=== PATIENT | male | born 1960 | race Caucasian/White ===

== ENCOUNTER 2017-04-24 11:29 | Emergency (ER) | payer MEDICAID ==
[~2017-04-24] VITALS: Ht 182.8 cm; Wt 78.0 kg
[~2017-04-24 11:29] MED LIST: ALBUTEROL0.09 MG/A2 IH; DOXYCYCLINE100 M3 PO; DUONEB 3 MG/3 ML3 M1 INH; PREDNISONE10 MG PO; PROAIR HFA8.5 GM INH; SYMBICORT1 AE1 INH; ZANTAC 300300 MG PO; ZESTRIL5 MG PO; ZITHROMAX Z PA250 MG PO
[2017-04-24] MEDS ORDERED: CYCLOBENZAPRINE10 MG PO (14:20)
[2017-04-24] MEDS ORDERED: NAPROSYN500 MG PO (14:20)
== END 2017-04-24 14:53 | disposition home or self-care (01) ==
LOC: ED 11:29
DX: S29.011A Strain of muscle and tendon of front wall of thorax, initial encounter (principal); F17.200 Nicotine dependence, unspecified, uncomplicated; I10 Essential (primary) hypertension; J44.9 Chronic obstructive pulmonary disease, unspecified; Z79.899 Other long term (current) drug therapy; X58.XXXA Exposure to other specified factors, initial encounter; Y93.89 Activity, other specified; Y92.89 Other specified places as the place of occurrence of the external cause; Y99.9 Unspecified external cause status

== ENCOUNTER → 2017-04-28 | Outpatient (CLI) | payer MEDICARE, MEDICAID ==
[~2017-04-28] MED LIST changes: +CYCLOBENZAPRINE10 MG PO; +NAPROSYN500 MG PO
[2017-04-28 09:57] LABS: BASO % 0.8 % (0.0-1.0); EOS # 0.2 10*3/uL (0.0-0.4); HEMATOCRIT 48.6 % (42.0-52.0); HEMOGLOBIN 16.7 g/dl (14.0-18.0); LYMPH # 1.8 10*3/uL (1.3-4.4); LYMPH % 33.1 % (27.0-41.0); MEAN CELL VOLUME 99.8 fl (80.0-94.0); MEAN CORPUSCULAR HGB 34.3 pg (27.0-31.0); MEAN CORPUSCULAR HGB CONC 34.4 g/dl (33.0-37.0); MONO # 0.7 10*3/uL (0.1-1.0); MONO % 13.4 % (3.0-9.0); NEUT # 2.6 10*3/uL (2.3-7.9); NEUT % 49.5 % (47.0-73.0); PLATELET COUNT AUTOMATED 166 10*3/uL (130-400); RED BLOOD COUNT 4.87 10*6/uL (4.50-5.90); RED CELL DISTRI WIDTH 12.9 % (0-14.5); WHITE BLOOD COUNT 5.3 10*3/uL (4.8-10.8)
== END | disposition home or self-care (01) ==
LOC: PHLEB 09:30
PROVIDERS: Internal Medicine
DX: D75.1 Secondary polycythemia (principal)

== ENCOUNTER → 2017-05-11 | Outpatient (CLI) | payer MEDICARE, MEDICAID ==
[2017-05-11 15:57] LABS: BASO # 0.1 10*3/uL (0.0-0.1); BASO % 0.5 % (0.0-1.0); EOS # 0.2 10*3/uL (0.0-0.4); HEMATOCRIT 48.3 % (42.0-52.0); HEMOGLOBIN 17.1 g/dl (14.0-18.0); LYMPH # 2.1 10*3/uL (1.3-4.4); LYMPH % 21.5 % (27.0-41.0); MEAN CELL VOLUME 99.8 fl (80.0-94.0); MEAN CORPUSCULAR HGB 35.3 pg (27.0-31.0); MEAN CORPUSCULAR HGB CONC 35.4 g/dl (33.0-37.0); MEAN PLATELET VOLUME 10.5 fl (9.6-12.3); MONO # 1.1 10*3/uL (0.1-1.0); MONO % 11.2 % (3.0-9.0); NEUT # 6.2 10*3/uL (2.3-7.9); NEUT % 64.4 % (47.0-73.0); PLATELET COUNT AUTOMATED 197 10*3/uL (130-400); RED BLOOD COUNT 4.84 10*6/uL (4.50-5.90); WHITE BLOOD COUNT 9.6 10*3/uL (4.8-10.8)
[2017-05-11 16:26] LABS: ALBUMIN 3.7 gm/dl (3.1-4.5); ALKALINE PHOSPHATASE 76 U/L (45-117); BILIRUBIN, DIRECT 0.2 mg/dL (0.0-0.2); BUN 14 mg/dl (7-24); CHLORIDE 101 mmol/L (98-107); CREATININE 0.83 mg/dL (0.70-1.30); POTASSIUM 3.8 mmol/L (3.5-5.1); SGOT/AST 131 IU/L (3-35); SGPT/ALT 194 U/L (12-78); SODIUM 138 mmol/L (136-145)
[2017-05-11 16:37] LABS: URINE AMPHETAMINES < 1000 (1000ng/ml); URINE BARBITURATES < 200 (200ng/ml); URINE BENZODIAZEPINES < 200 (200ng/ml); URINE CANNABINOIDS (THC) > 50 (50ng/ml); URINE COCAINE < 300 (300ng/ml); URINE METHADONE < 300 (300ng/ml); URINE OPIATES < 300 (300ng/ml)
[2017-05-11 16:38] LABS: URINE PHENCYCLIDINE < 25 (25ng/ml)
[2017-05-12 06:10] LABS: HEPATITIS B SURFACE AB 006395 Non Reactive (.); HEPATITIS B SURFACE AG Negative (Negative)
[2017-05-12 19:05] LABS: HCV LOG10 6.551 (.); HEPATITIS C QNT 3560000 IU/mL (.)
== END | disposition home or self-care (01) ==
LOC: LAB 15:03
PROVIDERS: Nurse Practitioner Family
DX: B18.2 Chronic viral hepatitis C (principal); F10.10 Alcohol abuse, uncomplicated

== ENCOUNTER → 2017-08-02 | Outpatient (CLI) | payer MEDICARE, MEDICAID ==
[2017-08-02 08:41] LABS: ALBUMIN 3.5 gm/dl (3.1-4.5); BILIRUBIN, DIRECT 0.1 mg/dL (0.0-0.2); TOTAL PROTEIN 7.5 gm/dL (6.4-8.2)
[2017-08-04 21:06] LABS: HEPATITIS C QUANTITATION HCV Not Detected IU/mL (.)
== END | disposition home or self-care (01) ==
LOC: LAB 07:17
PROVIDERS: Internal Medicine Gastroenterology
DX: B18.2 Chronic viral hepatitis C (principal)

== ENCOUNTER → 2017-12-06 | Outpatient (CLI) | payer MEDICARE, MEDICAID ==
[~2017-12-06] MED LIST changes: +BREO ELLIPTA 11 EACH PO
--- NOTE | ~2017-12-06 | ST ---
[place], [place] EXERCISE STRESS TEST REPORT NAME: TEDDY COLVIN JR [facility] #: [id number] UNIT #: [id number] ROOM: DOCTOR: GIOVANNI GARCIA MD BIRTHDATE: [birth year] DOS: 12/06/2017 EXERCISE STRESS TEST. INDICATIONS: Left arm and jaw pain. PROCEDURE: The patient walked on a full Nehemias protocol stress test for 8 minutes 22 seconds and achieved a maximum heart rate of 149, which represented 90% of his maximum predicted heart rate at a workload of 10.0 mets. He stopped for dyspnea and did not have any specific chest discomfort. He did have some arm and jaw discomfort with exercise, however. The resting electrocardiogram was normal. With exercise, he developed 1.5 mm of slowly up[address] segment depression in leads II, III and aVF that resolved within 2 minutes of recovery. The Witt treadmill score was -3.2 consistent with a moderate risk for future cardiac events. One minute prior to completion of exercise protocol, the patient was given radionuclide intravenously. IMPRESSIONS: 1. Adequate exercise capacity with atypical chest discomfort and abnormal electrocardiographic changes. 2. Witt treadmill score of -3.2 consistent with moderate risk for future cardiac events. 3. Isotope injected. Please see the separate imaging report for further details of the patient's stress test results. GIOVANNI GARCIA MD CM:STRESS:EXERCISE STRESS TEST REPORT [id number] GIOVANNI GARCIA MD
== END | disposition home or self-care (01) ==
LOC: CARD 02:45
DX: I65.23 Occlusion and stenosis of bilateral carotid arteries (principal)

== ENCOUNTER → 2017-12-08 | Outpatient (CLI) | payer MEDICARE, MEDICAID | END | disposition home or self-care (01) | LOC: CARD 09:20 | DX: I34.0 Nonrheumatic mitral (valve) insufficiency (principal); I07.1 Rheumatic tricuspid insufficiency ==

== ENCOUNTER → 2017-12-16 | Outpatient (CLI) | payer MEDICARE, MEDICAID ==
[2017-12-16 09:30] LABS: CREATININE 1.06 mg/dL (0.70-1.30)
== END | disposition home or self-care (01) ==
LOC: LAB 08:53 → RAD 08:53 → CT 09:00
PROVIDERS: Radiology Diagnostic Radiology
DX: R20.2 Paresthesia of skin (principal)

== ENCOUNTER → 2018-01-19 | Outpatient (CLI) | payer MEDICARE, MEDICAID | LOC: MRI 01-12 09:00 | DX: R20.2 Paresthesia of skin (principal) ==

== ENCOUNTER → 2018-06-06 | Outpatient (CLI) | payer MEDICARE, MEDICAID ==
[~2018-06-06] MED LIST changes: +QUALITY CHOICE81 M1 PO
== END | disposition home or self-care (01) ==
LOC: RAD 10:56
DX: M25.551 Pain in right hip (principal)

== ENCOUNTER → 2018-10-13 | Outpatient (CLI) | payer MEDICARE, MEDICAID ==
[~2018-10-13] MED LIST changes: +MOBIC15 MG PO; +PREDNISONE50 MG PO; +VIBRAMYCIN100 MG PO; +VITAMIN D31000 UNI1 PO
[2018-10-14 22:05] LABS: HEPATITIS C QUANTITATION HCV Not Detected IU/mL (.)
== END ==
LOC: LAB 09:59
PROVIDERS: Internal Medicine Gastroenterology
DX: B18.2 Chronic viral hepatitis C (principal)

== ENCOUNTER 2018-12-04 07:45 | Emergency (ER) | payer MEDICARE, MEDICAID ==
[~2018-12-04] VITALS: Ht 182.8 cm; Wt 89.4 kg
[~2018-12-04 07:45] MED LIST changes: -PREDNISONE50 MG PO; -VIBRAMYCIN100 MG PO
[2018-12-04] MEDS ORDERED: VIBRAMYCIN100 MG PO (09:51)
[2018-12-04] MEDS ORDERED: PREDNISONE50 MG PO (09:51)
== END 2018-12-04 09:56 | disposition home or self-care (01) ==
LOC: ED 07:45
DX: M54.6 Pain in thoracic spine (principal); J44.1 Chronic obstructive pulmonary disease with (acute) exacerbation; F17.200 Nicotine dependence, unspecified, uncomplicated; Z79.899 Other long term (current) drug therapy; Z79.82 Long term (current) use of aspirin

== ENCOUNTER → 2020-04-24 | Outpatient (CLI) | payer MEDICARE ==
[~2020-04-24] MED LIST changes: +PREDNISONE50 MG PO; +VIBRAMYCIN100 MG PO
[2020-04-24 10:44] LABS: HEMATOCRIT 49.3 % (42.0-52.0); MEAN CELL VOLUME 99.2 fl (80.0-94.0); MEAN CORPUSCULAR HGB 33.4 pg (27.0-31.0); MEAN CORPUSCULAR HGB CONC 33.7 g/dl (33.0-37.0); MEAN PLATELET VOLUME 10.1 fl (9.6-12.3); RED BLOOD COUNT 4.97 10*6/uL (4.50-5.90); WHITE BLOOD COUNT 9.1 10*3/uL (4.8-10.8)
[2020-04-24 11:10] LABS: ALBUMIN 3.9 gm/dl (3.1-4.5); ALKALINE PHOSPHATASE 51 U/L (45-117); BUN 13 mg/dl (7-24); CHLORIDE 106 mmol/L (98-107); CREATININE 0.98 mg/dL (0.70-1.30); POTASSIUM 4.4 mmol/L (3.5-5.1); SGOT/AST 28 IU/L (3-35); SGPT/ALT 36 U/L (12-78); SODIUM 138 mmol/L (136-145); TOTAL PROTEIN 7.6 gm/dL (6.4-8.2)
== END | disposition home or self-care (01) ==
LOC: CARD 10:00 → LAB 10:04
PROVIDERS: Physician Assistant
DX: I10 Essential (primary) hypertension (principal); J43.9 Emphysema, unspecified; R42 Dizziness and giddiness

== ENCOUNTER 2020-10-26 13:19 | Observation (INO) | payer MEDICARE ==
[~2020-10-26] VITALS: Ht 180.3 cm; Wt 90.0 kg
[2020-10-26 13:24] VITALS: BP 179/100
[2020-10-26 13:54] LABS: BASO # 0.1 10*3/uL (0.0-0.1); BASO % 0.4 % (0.0-1.0); EOS # 0.2 10*3/uL (0.0-0.4); EOS % 1.4 % (1.0-4.0); HEMATOCRIT 52.6 % (42.0-52.0); LYMPH # 1.9 10*3/uL (1.3-4.4); LYMPH % 15.2 % (27.0-41.0); MEAN CELL VOLUME 98.1 fl (80.0-94.0); MEAN CORPUSCULAR HGB CONC 33.7 g/dl (33.0-37.0); MEAN PLATELET VOLUME 9.9 fl (9.6-12.3); MONO # 0.8 10*3/uL (0.1-1.0); MONO % 6.3 % (3.0-9.0); NEUT # 9.4 10*3/uL (2.3-7.9); NEUT % 76.4 % (47.0-73.0); PLATELET COUNT AUTOMATED 294 10*3/uL (130-400); RED BLOOD COUNT 5.36 10*6/uL (4.50-5.90); RED CELL DISTRI WIDTH 12.3 % (0-14.5); WHITE BLOOD COUNT 12.3 10*3/uL (4.8-10.8)
[2020-10-26 14:11] LABS: ALBUMIN 3.9 gm/dl (3.1-4.5); ALKALINE PHOSPHATASE 58 U/L (45-117); BUN 11 mg/dl (7-24); CHLORIDE 104 mmol/L (98-107); CREATININE 1.41 mg/dL (0.70-1.30); LIPASE 73 U/L (73-393); POTASSIUM 4.2 mmol/L (3.5-5.1); SGOT/AST 27 IU/L (3-35); SGPT/ALT 39 U/L (12-78); SODIUM 138 mmol/L (136-145); TOTAL PROTEIN 7.9 gm/dL (6.4-8.2)
[2020-10-26 14:21] LABS: BILIRUBIN Negative (Negative); BLOOD Negative (Negative); CLARITY Clear (Clear); COLOR Dark Yellow (Yellow); GLUCOSE Negative (Negative); KETONE Trace (Negative); LEUKO ESTERASE Negative (Negative); NITRITE Negative (Negative); PH 6.5 (4.5-8.0); SPECIFIC GRAVITY 1.025 (1.001-1.030)
[2020-10-26 14:34] LABS: BACTERIA TRACE; EPITHELIAL CELLS 0-2; MUCOUS 1+; WBC 0-2 wbc/hpf (0-5)
[2020-10-26 17:16] VITALS: BP 154/88
[2020-10-26 17:26] VITALS: BP 150/80
[2020-10-27] VITALS (8 sets, daily range): BP systolic 134–158; BP diastolic 68–99
[2020-10-27 06:26] LABS: ACT PARTIAL THROMBO TIME 27.8 SECONDS (20.0-32.1)
[2020-10-27 06:27] LABS: BUN 7 mg/dl (7-24); CHLORIDE 109 mmol/L (98-107); CREATININE 0.83 mg/dL (0.70-1.30); POTASSIUM 3.8 mmol/L (3.5-5.1); SODIUM 141 mmol/L (136-145)
[2020-10-27 06:28] LABS: BASO % 0.4 % (0.0-1.0); EOS # 0.3 10*3/uL (0.0-0.4); EOS % 2.5 % (1.0-4.0); HEMATOCRIT 46.8 % (42.0-52.0); LYMPH # 1.9 10*3/uL (1.3-4.4); LYMPH % 16.6 % (27.0-41.0); MEAN CELL VOLUME 97.7 fl (80.0-94.0); MEAN CORPUSCULAR HGB CONC 33.8 g/dl (33.0-37.0); MEAN PLATELET VOLUME 10.2 fl (9.6-12.3); MONO # 0.9 10*3/uL (0.1-1.0); MONO % 8.3 % (3.0-9.0); NEUT # 8.2 10*3/uL (2.3-7.9); NEUT % 71.8 % (47.0-73.0); PLATELET COUNT AUTOMATED 212 10*3/uL (130-400); RED BLOOD COUNT 4.79 10*6/uL (4.50-5.90); RED CELL DISTRI WIDTH 12.4 % (0-14.5); WHITE BLOOD COUNT 11.3 10*3/uL (4.8-10.8)
[2020-10-28] VITALS: BP 149/79
[2020-10-28 06:36] LABS: BASO % 0.3 % (0.0-1.0); EOS # 0.3 10*3/uL (0.0-0.4); EOS % 3.3 % (1.0-4.0); HEMATOCRIT 47.3 % (42.0-52.0); LYMPH # 1.8 10*3/uL (1.3-4.4); LYMPH % 18.8 % (27.0-41.0); MEAN CELL VOLUME 97.5 fl (80.0-94.0); MEAN CORPUSCULAR HGB CONC 33.8 g/dl (33.0-37.0); MEAN PLATELET VOLUME 10.2 fl (9.6-12.3); MONO # 0.7 10*3/uL (0.1-1.0); MONO % 7.4 % (3.0-9.0); NEUT # 6.7 10*3/uL (2.3-7.9); NEUT % 69.9 % (47.0-73.0); PLATELET COUNT AUTOMATED 213 10*3/uL (130-400); RED BLOOD COUNT 4.85 10*6/uL (4.50-5.90); RED CELL DISTRI WIDTH 12.3 % (0-14.5); WHITE BLOOD COUNT 9.5 10*3/uL (4.8-10.8)
[2020-10-28 08:00] VITALS: BP 124/84
[2020-10-28] MEDS ORDERED: PROTONIX40 MG PO (11:09)
[2020-10-28] MEDS ORDERED: AUGMENTIN 875875 MG PO (11:10)
[2020-10-28] MEDS ORDERED: CARAFATE1 G1 PO (11:10)
== END 2020-10-28 13:30 | disposition home or self-care (01) ==
LOC: ED 13:19 → 5E 16:07 → EDHOLD 16:07 → 5E 17:08
PROVIDERS: Physician Assistant; Student in an Organized Health Care Education/Training Program; ADMIT Internal Medicine; ATTEND Internal Medicine
DX: K92.2 Gastrointestinal hemorrhage, unspecified (principal); K29.61 Other gastritis with bleeding; K44.9 Diaphragmatic hernia without obstruction or gangrene; K52.9 Noninfective gastroenteritis and colitis, unspecified; J44.9 Chronic obstructive pulmonary disease, unspecified; R65.10 Systemic inflammatory response syndrome (SIRS) of non-infectious origin without acute organ dysfunction; D72.829 Elevated white blood cell count, unspecified; R73.9 Hyperglycemia, unspecified; R00.0 Tachycardia, unspecified; N17.0 Acute kidney failure with tubular necrosis; F17.200 Nicotine dependence, unspecified, uncomplicated; Z71.6 Tobacco abuse counseling

== ENCOUNTER 2020-12-10 09:47 | Emergency (ER) | payer MEDICARE ==
[~2020-12-10] VITALS: Ht 180.3 cm; Wt 88.5 kg
[~2020-12-10 09:47] MED LIST changes: +AUGMENTIN 875875 MG PO; +CARAFATE1 G1 PO; +PROTONIX40 MG PO
[2020-12-10] MEDS ORDERED: HYDROCODONE-AC1 EAC1 PO (12:24)
== END 2020-12-10 12:50 | disposition home or self-care (01) ==
LOC: ED 09:47
DX: S01.01XA Laceration without foreign body of scalp, initial encounter (principal); Z79.899 Other long term (current) drug therapy; X58.XXXA Exposure to other specified factors, initial encounter; Y93.89 Activity, other specified; Y92.89 Other specified places as the place of occurrence of the external cause; Y99.8 Other external cause status

== ENCOUNTER → 2022-08-25 | Outpatient (CLI) | payer OTHER ==
[~2022-08-25] MED LIST changes: +HYDROCODONE-AC1 EAC1 PO; +NORVASC10 MG PO; +ZESTRIL10 MG PO
== END | disposition home or self-care (01) ==
LOC: CARD 01:08
PROVIDERS: ATTEND Internal Medicine Cardiovascular Disease
DX: R53.81 Other malaise (principal); I25.84 Coronary atherosclerosis due to calcified coronary lesion

== ENCOUNTER → 2023-03-19 | Outpatient (CLI) | payer OTHER | END | disposition home or self-care (01) | LOC: CT 03-18 13:00 → RAD 12:40 → CT 13:00 | PROVIDERS: ATTEND Physician Assistant | DX: J43.9 Emphysema, unspecified (principal); F17.210 Nicotine dependence, cigarettes, uncomplicated; M84.48XA Pathological fracture, other site, initial encounter for fracture ==

== ENCOUNTER 2023-10-24 22:05 | Emergency (ER) | payer OTHER ==
[~2023-10-24] VITALS: Ht 177.8 cm; Wt 95.7 kg
[2023-10-24 22:44] LABS: BASO # 0.1 10*3/uL (0.0-0.1); BASO % 0.6 % (0.0-1.0); EOS # 0.3 10*3/uL (0.0-0.4); EOS % 3.3 % (1.0-4.0); HEMATOCRIT 50.1 % (42.0-52.0); LYMPH % 30.8 % (27.0-41.0); MEAN CELL VOLUME 98.6 fl (80.0-94.0); MEAN CORPUSCULAR HGB 33.1 pg (27.0-31.0); MEAN CORPUSCULAR HGB CONC 33.5 g/dl (33.0-37.0); MEAN PLATELET VOLUME 9.3 fl (9.6-12.3); MONO # 0.9 10*3/uL (0.1-1.0); MONO % 9.1 % (3.0-9.0); NEUT # 5.5 10*3/uL (2.3-7.9); PLATELET COUNT AUTOMATED 250 10*3/uL (130-400); RED BLOOD COUNT 5.08 10*6/uL (4.50-5.90); WHITE BLOOD COUNT 9.8 10*3/uL (4.8-10.8)
[2023-10-24 23:05] LABS: ALKALINE PHOSPHATASE 54 U/L (46-116); BUN 7 mg/dl (9-23); CHLORIDE 99 mmol/L (98-107); ETHYL ALCOHOL 229.2 mg/dl (<3); POTASSIUM 4.3 mmol/L (3.4-5.1); SGPT/ALT 35 U/L (5-49); TOTAL PROTEIN 7.3 gm/dL (6.0-8.0)
== END 2023-10-25 04:34 | disposition home or self-care (01) ==
LOC: ED 22:05
PROVIDERS: Internal Medicine
DX: F10.920 Alcohol use, unspecified with intoxication, uncomplicated (principal); F11.90 Opioid use, unspecified, uncomplicated; F17.200 Nicotine dependence, unspecified, uncomplicated; Z79.899 Other long term (current) drug therapy; Y90.7 Blood alcohol level of 200-239 mg/100 ml; W18.39XA Other fall on same level, initial encounter; Y93.89 Activity, other specified; Y92.098 Other place in other non-institutional residence as the place of occurrence of the external cause; Y99.8 Other external cause status

== ENCOUNTER → 2023-12-07 | Outpatient (CLI) | payer OTHER | END | disposition home or self-care (01) | LOC: US 01:12 | PROVIDERS: ATTEND Internal Medicine Hematology & Oncology | DX: K76.89 Other specified diseases of liver (principal); D75.1 Secondary polycythemia; I10 Essential (primary) hypertension; E78.5 Hyperlipidemia, unspecified; Z86.19 Personal history of other infectious and parasitic diseases ==

== ENCOUNTER → 2023-12-09 | Outpatient (CLI) | payer OTHER | END | disposition home or self-care (01) | LOC: CT 02:05 | PROVIDERS: ATTEND Internal Medicine Hematology & Oncology | DX: J43.9 Emphysema, unspecified (principal); J21.9 Acute bronchiolitis, unspecified; R91.1 Solitary pulmonary nodule; D75.1 Secondary polycythemia; I25.10 Atherosclerotic heart disease of native coronary artery without angina pectoris; Z87.891 Personal history of nicotine dependence ==

== ENCOUNTER → 2024-02-10 | Outpatient (CLI) | payer OTHER ==
[~2024-02-10] MED LIST changes: +ASPIRIN81 M1 PO; -NORVASC10 MG PO; +NORVASC5 MG PO; +ROSUVASTATIN CA10 MG PO; +WELLBUTRIN SR150 MG PO
== END | disposition home or self-care (01) ==
LOC: CARD 01:30
PROVIDERS: ATTEND Internal Medicine Cardiovascular Disease
DX: I73.9 Peripheral vascular disease, unspecified (principal); E78.5 Hyperlipidemia, unspecified; I10 Essential (primary) hypertension; J44.9 Chronic obstructive pulmonary disease, unspecified; I25.84 Coronary atherosclerosis due to calcified coronary lesion; Z72.0 Tobacco use

== ENCOUNTER → 2024-02-15 | Outpatient (CLI) | payer OTHER ==
[~2024-02-15] MED LIST changes: +Regadenoson 0.4 MG/5 ML SYR IV ONE
== END | disposition home or self-care (01) ==
LOC: CARD 00:26
PROVIDERS: ATTEND Internal Medicine Cardiovascular Disease
DX: I25.84 Coronary atherosclerosis due to calcified coronary lesion (principal); R06.02 Shortness of breath

== ENCOUNTER → 2024-04-11 | Outpatient (CLI) | payer OTHER ==
[~2024-04-11] MED LIST changes: +Gadoxetate Disodium 10 ML SOL IV ONE; -Regadenoson 0.4 MG/5 ML SYR IV ONE; +SODIUM CHLORIDE 0.9% 50 ML IV ONE
== END | disposition home or self-care (01) ==
LOC: MRI 04-05 01:52
PROVIDERS: ATTEND Nurse Practitioner Family
DX: K76.89 Other specified diseases of liver (principal)

== ENCOUNTER → 2024-10-27 | Outpatient (CLI) | payer OTHER ==
[~2024-10-27] MED LIST changes: -Gadoxetate Disodium 10 ML SOL IV ONE; -SODIUM CHLORIDE 0.9% 50 ML IV ONE
== END | disposition home or self-care (01) ==
LOC: US 08:30
PROVIDERS: ATTEND Physician Assistant
DX: E05.90 Thyrotoxicosis, unspecified without thyrotoxic crisis or storm (principal)

== ENCOUNTER → 2024-11-02 | Outpatient (CLI) | payer OTHER | END | disposition home or self-care (01) | LOC: NM 10-30 08:00 | PROVIDERS: ATTEND Physician Assistant | DX: E05.90 Thyrotoxicosis, unspecified without thyrotoxic crisis or storm (principal) ==

== ENCOUNTER 2025-05-04 10:03 | Inpatient (IN) | payer OTHER ==
[~2025-05-04] VITALS: Ht 182.9 cm; Wt 89.8 kg
[~2025-05-04 10:03] MED LIST changes: +CIPRO500 MG PO; +METRONIDAZOLE500 M1 PO; +TRELEGY ELLIPT1 EACH INH
[2025-05-04] MEDS ORDERED: Albuterol Sulf/Ipratropium 3 ML VIAL NEB ONE (10:25)
[2025-05-04 10:39] VITALS: BP 107/72
[2025-05-04 10:47] LABS: MEAN CELL VOLUME 99.2 fl (80.0-94.0); MEAN CORPUSCULAR HGB 32.6 pg (27.0-31.0); MEAN PLATELET VOLUME 9.7 fl (9.6-12.3); NUCLEATED RED BLOOD CELL 0.0 % (0.0-0.0); NUCLEATED RED BLOOD CELL 0.0 10*3/uL (0.0-0.0); PLATELET COUNT AUTOMATED 271 10*3/uL (130-400); RED CELL DISTRI WIDTH 12.0 % (0-14.5)
[2025-05-04 10:48] LABS: MANUAL DIFF REFLEX YES
[2025-05-04 11:06] LABS: BUN 7 mg/dl (9-23)
[2025-05-04 11:08] LABS: PLATELET SUFFICIENCY NORMAL (NORMAL)
[2025-05-04] MEDS ORDERED: AZITHROMYCIN 250 ML IV ONE (12:15)
[2025-05-04] MEDS ORDERED: SODIUM CHLORIDE 0.9% 1,000 ML IV ONE (13:10)
[2025-05-04] MEDS ORDERED: Albuterol Sulf/Ipratropium 3 ML VIAL NEB SCH (14:00)
[2025-05-04 15:15] VITALS: BP 120/64
[2025-05-04 20:00] VITALS: BP 116/69
[2025-05-04] MEDS ORDERED: GUAIFENESIN 600 MG TAB ER PO SCH (22:00)
[2025-05-05] VITALS: BP 98/52
[2025-05-05 06:27] LABS: MEAN CELL VOLUME 98.5 fl (80.0-94.0); MEAN CORPUSCULAR HGB 32.2 pg (27.0-31.0); MEAN PLATELET VOLUME 10.0 fl (9.6-12.3); NUCLEATED RED BLOOD CELL 0.0 % (0.0-0.0); NUCLEATED RED BLOOD CELL 0.0 10*3/uL (0.0-0.0); PLATELET COUNT AUTOMATED 292 10*3/uL (130-400); RED CELL DISTRI WIDTH 11.9 % (0-14.5)
[2025-05-05 06:37] LABS: MANUAL DIFF REFLEX YES
[2025-05-05 07:01] LABS: BUN 11 mg/dl (9-23); SGPT/ALT 136 U/L (5-49)
[2025-05-05 07:24] LABS: PLATELET SUFFICIENCY NORMAL (NORMAL)
[2025-05-05 08:00] VITALS: BP 130/77
[2025-05-05 08:10] LABS: VITAMIN D, 25-HYDROXY 23.6 ng/mL (30-100)
[2025-05-05] MEDS ORDERED: FOLIC ACID 1 MG TAB PO SCH (10:00)
[2025-05-05] MEDS ORDERED: Cholecalciferol 5,000 IU CAP (125 MCG) PO SCH (10:00)
[2025-05-05] MEDS ORDERED: LISINOPRIL 10 MG TAB PO SCH (10:00)
[2025-05-05] MEDS ORDERED: ASPIRIN ENTERIC COATED 81 MG TAB PO SCH (10:00)
[2025-05-05 12:00] VITALS: BP 150/66
[2025-05-05] MEDS ORDERED: AZITHROMYCIN 250 ML IV SCH (14:00)
[2025-05-05 16:00] VITALS: BP 112/50
[2025-05-05 20:00] VITALS: BP 140/53
[2025-05-06] VITALS: BP 119/74
[2025-05-06 08:00] VITALS: BP 125/73
[2025-05-06] MEDS ORDERED: AZITHROMYCIN 250 MG TAB PO ONE (11:15)
[2025-05-06] MEDS ORDERED: OMNICEF300 MG PO (11:16)
[2025-05-06] MEDS ORDERED: PREDNISONE10 MG PO (11:16)
[2025-05-06] MEDS ORDERED: ZITHROMAX250 MG PO (11:16)
[2025-05-06] MEDS ORDERED: VITAMIN D3125 MC1 PO (11:16)
[2025-05-06] MEDS ORDERED: MUCUS RELIEF E600 MG PO (11:16)
[2025-05-06] MEDS ORDERED: NATURE'S BLEND F1 MG PO (11:16)
[2025-05-06] MEDS ORDERED: Ipratropium Brom3 ML INH (11:16)
[2025-05-07 14:07] LABS: MYCOPLASMA PNEUMONIAE IGG 470 U/mL (0-99); MYCOPLASMA PNEUMONIAE IGM <770 U/mL (0-769)
== END 2025-05-06 12:07 | disposition home or self-care (01) | DRG 871 ==
LOC: ED 10:03 → EDHOLD 12:17 → 4E 14:37
PROVIDERS: Emergency Medicine; Registered Nurse; ADMIT Internal Medicine; ATTEND Internal Medicine
DX: A41.9 Sepsis, unspecified organism (principal); J96.21 Acute and chronic respiratory failure with hypoxia; J96.22 Acute and chronic respiratory failure with hypercapnia; J44.1 Chronic obstructive pulmonary disease with (acute) exacerbation; F33.9 Major depressive disorder, recurrent, unspecified; J21.9 Acute bronchiolitis, unspecified; F10.10 Alcohol abuse, uncomplicated; F17.210 Nicotine dependence, cigarettes, uncomplicated; I10 Essential (primary) hypertension; R65.20 Severe sepsis without septic shock; E78.2 Mixed hyperlipidemia; Z79.899 Other long term (current) drug therapy; Z79.01 Long term (current) use of anticoagulants; Z79.2 Long term (current) use of antibiotics; Z82.49 Family history of ischemic heart disease and other diseases of the circulatory system; Z82.3 Family history of stroke; Y90.0 Blood alcohol level of less than 20 mg/100 ml

== ENCOUNTER 2025-05-21 14:41 | Emergency (ER) | payer OTHER ==
[~2025-05-21] VITALS: Ht 180.3 cm; Wt 93.0 kg
[~2025-05-21 14:41] MED LIST changes: +Ipratropium Brom3 ML INH; +MUCUS RELIEF E600 MG PO; +NATURE'S BLEND F1 MG PO; +OMNICEF300 MG PO; +VITAMIN D3125 MC1 PO; +ZITHROMAX250 MG PO
[2025-05-21] MEDS ORDERED: Albuterol Sulf/Ipratropium 3 ML VIAL NEB ONE (15:10)
[2025-05-21 15:34] LABS: BASO # 0.0 10*3/uL (0.0-0.1); BASO % 0.2 % (0.0-1.0); EOS # 0.1 10*3/uL (0.0-0.4); EOS % 0.5 % (1.0-4.0); MEAN CELL VOLUME 97.0 fl (80.0-94.0); MEAN CORPUSCULAR HGB 32.3 pg (27.0-31.0); MEAN PLATELET VOLUME 10.0 fl (9.6-12.3); MONO # 1.5 10*3/uL (0.1-1.0); MONO % 8.5 % (3.0-9.0); NEUT # 14.6 10*3/uL (2.3-7.9); NEUT % 85.4 % (47.0-73.0); NUCLEATED RED BLOOD CELL 0.0 % (0.0-0.0); NUCLEATED RED BLOOD CELL 0.0 10*3/uL (0.0-0.0); PLATELET COUNT AUTOMATED 229 10*3/uL (130-400); RED CELL DISTRI WIDTH 12.9 % (0-14.5)
[2025-05-21 16:15] LABS: BUN 19 mg/dl (9-23)
[2025-05-21] MEDS ORDERED: PREDNISONE20 M1 PO (17:26)
[2025-05-21] MEDS ORDERED: Ipratropium Brom3 ML INH (17:26)
== END 2025-05-21 17:30 | disposition home or self-care (01) ==
LOC: ED 14:41
PROVIDERS: Emergency Medicine
DX: J44.1 Chronic obstructive pulmonary disease with (acute) exacerbation (principal); I10 Essential (primary) hypertension; Z86.19 Personal history of other infectious and parasitic diseases